=== PATIENT | male | born 1975 | race American Indian/Alaskan Native ===

== ENCOUNTER 2017-11-10 17:51 | Emergency (ER) | payer OTHER ==
[2017-11-10] MEDS ORDERED: TYLENOL ONE (18:07)
[2017-11-10] MEDS ORDERED: TYLENOL PO ONE (18:12)
[2017-11-10] MEDS ORDERED: MOTRIN PO ONE (18:40)
--- NOTE | 2017-11-10 18:44 | Emergency Department Report ---
- General Chief Complaint: Upper Respiratory Infection Stated Complaint: COLD S/S Time Seen by Provider: 11/10/17 18:09 Source: patient Mode of arrival: Ambulatory Limitations: No Limitations - History of Present Illness Initial Comments: This is a 41-year-old male nontoxic, well nourished in appearance, no acute signs of distress presents to the ED with c/o of rhinnorhea, frontal sinus pain , nonproductive cough, and nasal congestion x2 days. Patient also stated he developed fever this afternoon but denies taking anything for fever. Patient denies any recent travels, long car rides, or recent hospital stays. Patient denies hemoptysis, chest pain, shortness of breathe, fever, chills, headache, stiff neck, nausea, vomiting, numbness or tingling. Patient denies any blurry vision. Denies thunderclap headache. Patient denies any calf pain or tenderness. Denies any drug allergies. Denies PMH. MD Complaint: cough, rhinorrhea, nasal congestion, sinus pain -: days(s) (2) Severity: mild Severity scale (0 -10): 8 Quality: aching Consistency: constant Improves With: nothing Worsens With: nothing Associated Symptoms: rhinorrhea, nasal congestion, cough. denies: fever, chills , myalgias, diaphoresis, headache, sore throat, stiff neck, chest pain, shortness of breath, abdominal pain, nausea, vomiting, diarrhea, dysuria, rash, confusion, right sweats, weight loss, epistaxis, hoarseness, ear pain Treatments Prior to Arrival: none - Related Data Previous Rx's Medication Instructions Recorded Last Taken Type Azithromycin [Zithromax Z-SCOT] 250 mg PO DAILY #6 tablet 11/10/17 Unknown Rx Ibuprofen [Motrin] 600 mg PO Q8H PRN #30 tablet 11/10/17 Unknown Rx Allergies Allergy/AdvReac Type Severity Reaction Status Date / Time No Known Allergies Allergy Unverified 11/10/17 18:07 ED Review of Systems ROS: Stated complaint: COLD S/S Other details as noted in HPI Constitutional: denies: chills, fever Eyes: denies: eye pain, eye discharge, vision change ENT: denies: ear pain, throat pain Respiratory: cough. denies: shortness of breath, wheezing Cardiovascular: denies: chest pain, palpitations Endocrine: no symptoms reported Gastrointestinal: denies: abdominal pain, nausea, diarrhea Genitourinary: denies: urgency, dysuria Musculoskeletal: denies: back pain, joint swelling, arthralgia Skin: denies: rash, lesions Neurological: denies: headache, weakness, paresthesias Psychiatric: denies: anxiety, depression Hematological/Lymphatic: denies: easy bleeding, easy bruising ED Past Medical Hx - Past Medical History Previous Medical History?: No - Surgical History Past Surgical History?: No - Social History Smoking Status: Never Smoker Substance Use Type: None - Medications Home Medications: Home Medications Medication Instructions Recorded Confirmed Last Taken Type Azithromycin [Zithromax Z-SCOT] 250 mg PO DAILY #6 tablet 11/10/17 Unknown Rx Ibuprofen [Motrin] 600 mg PO Q8H PRN #30 tablet 11/10/17 Unknown Rx ED Physical Exam - General Limitations: No Limitations General appearance: alert, in no apparent distress - Head Head exam: Present: atraumatic, normocephalic, normal inspection - Eye Eye exam: Present: normal appearance, PERRL, EOMI. Absent: scleral icterus, conjunctival injection, nystagmus, periorbital swelling, periorbital tenderness Pupils: Present: normal accommodation - ENT ENT exam: Present: normal exam, normal orophraynx, mucous membranes moist, TM's normal bilaterally, normal external ear exam - Neck Neck exam: Present: normal inspection, full ROM. Absent: tenderness, meningismus, lymphadenopathy, thyromegaly - Respiratory Respiratory exam: Present: normal lung sounds bilaterally. Absent: respiratory distress, wheezes, rales, rhonchi, stridor, chest wall tenderness, accessory muscle use, decreased breath sounds, prolonged expiratory - Cardiovascular Cardiovascular Exam: Present: regular rate, normal rhythm, normal heart sounds. Absent: irregular rhythm, systolic murmur, diastolic murmur, rubs, gallop - GI/Abdominal GI/Abdominal exam: Present: soft, normal bowel sounds. Absent: distended, tenderness, guarding, rebound, rigid, diminished bowel sounds - Rectal Rectal exam: Present: deferred - Extremities Exam Extremities exam: Present: normal inspection, full ROM, normal capillary refill. Absent: tenderness, pedal edema, joint swelling, calf tenderness - Back Exam Back exam: Present: normal inspection, full ROM. Absent: tenderness, CVA tenderness (R), CVA tenderness (L), muscle spasm, paraspinal tenderness, vertebral tenderness, rash noted - Neurological Exam Neurological exam: Present: alert, oriented X3, CN II-XII intact, normal gait, reflexes normal - Psychiatric Psychiatric exam: Present: normal affect, normal mood - Skin Skin exam: Present: warm, dry, intact, normal color. Absent: rash ED Course Vital Signs 11/10/17 11/10/17 18:02 18:13 Temperature 102.9 F H Pulse Rate 100 H Respiratory 18 18 Rate Blood Pressure 130/81 O2 Sat by Pulse 100 Oximetry - Reevaluation(s) Reevaluation #1: 11/10/17 18:48 Patient is speaking in full sentences with no signs of distress noted. ED Medical Decision Making - Medical Decision Making This is a 41-year-old male that presents with upper respiratory infection. Patient is stable and was examined by me. Patient received Motrin and Tylenol fever. Vital signs within normal range before discharge. Chest xray has been obtained and dictated by radiologist. Patient is notified of xray results with no questions noted. Patient is treated empircally with zpak. Patient was instructed to increase hydration and to take OTC motrin or tylenol during fever episode. Patient was instructed to Follow-up with a primary care doctor in 3-5 days or if symptoms worsen and continue return to emergency room as soon as possible. At time time of discharge, the patient does not seem toxic or ill in appearance. No acute signs of distress noted. Patient agrees to discharge treatment plan of care. No further questions noted by the patient. Critical care attestation.: If time is entered above; I have spent that time in minutes in the direct care of this critically ill patient, excluding procedure time. ED Disposition Clinical Impression: Upper respiratory infection Qualifiers: URI type: unspecified URI Qualified Code(s): J06.9 - Acute upper respiratory infection, unspecified Fever Qualifiers: Fever type: unspecified Qualified Code(s): R50.9 - Fever, unspecified Disposition: DC-01 TO HOME OR SELFCARE Is pt being admited?: No Does the pt Need Aspirin: No Condition: Stable Instructions: Ibuprofen (By mouth), Azithromycin (By mouth), Fever in Adults ( ED), Upper Respiratory Infection (ED) Additional Instructions: Follow-up with a primary care doctor in 3-5 days or if symptoms worsen and continue return to emergency room as soon as possible. Increase hydration and taking Motrin or Tylenol during fever episode as prescribed Prescriptions: Azithromycin [Zithromax Z-SCOT] 250 mg PO DAILY #6 tablet Ibuprofen [Motrin] 600 mg PO Q8H PRN #30 tablet PRN Reason: Fever Referrals: LISSETTE MARSHALL MD [Primary Care Provider] - 3-5 Days KANDACE FLORES MD [Staff Physician] - 3-[address] [facility] [Outside] - 3-5 Days [facility] [Outside] - 3-5 Days Forms: Work/School Release Form(ED)
--- NOTE | 2017-11-10 19:02 | XRay Report ---
FINAL REPORT PROCEDURE: PA and lateral chest x-ray TECHNIQUE: PA and lateral chest radiographs were obtained. CPT 13772 HISTORY: cough COMPARISON: No prior studies are available for comparison. FINDINGS: Heart: Normal. Mediastinum/Vessels: Normal. Lungs/Pleural space: Normal. Bony thorax: No acute osseous abnormality. Other: IMPRESSION: Negative examination. If symptoms persist or worsen consider follow-up exam.
[2017-11-10 19:46] VITALS: BP 140/90
== END 2017-11-10 19:52 | disposition home or self-care (01) ==
LOC: ED 17:51
DX: J06.9 Acute upper respiratory infection, unspecified (principal); R50.9 Fever, unspecified
CPT/HCPCS: 71020; 87400

== ENCOUNTER 2020-01-21 13:33 | Emergency (ER) | payer SELFPAY ==
--- NOTE | 2020-01-21 14:06 | Event Note ---
ED Screening Note Date of service: 01/21/20 Time: 14:02 ED Screening Note: This is a 44 y.o. M. that presents to the ER with elevated blood pressure and lightheadedness. PMH of HTN Patient states he was started on blood pressure medication at an urgent care several months ago with no follow up. This initial assessment/diagnostic orders/clinical plan/treatment(s) is/are subject to change based on patients health status, clinical progression and re- assessment by fellow clinical providers in the ED. Further treatment and workup at subsequent clinical providers discretion. Patient/guardian urged not to elope from the ED as their condition may be serious if not clinically assessed and ma naged. Initial orders include: ACC for further evaluation
[2020-01-21] MEDS ORDERED: METOPROLOL TARTRATE 50 MG TAB PO ONE (15:15)
[2020-01-21 16:20] LABS: BUN/Creatinine Ratio 11; Blood Urea Nitrogen 13 mg/dL (9-20); Calcium 9.9 mg/dL (8.4-10.2); Hemolysis Index 17
[2020-01-21 17:21] VITALS: BP 178/97
--- NOTE | 2020-01-21 17:33 | Emergency Department Report ---
ED General Adult HPI - General Chief complaint: Chest Pain Stated complaint: BP HIGH 190 Time Seen by Provider: 01/21/20 14:02 Source: patient Mode of arrival: Ambulatory Limitations: No Limitations - History of Present Illness Initial comments: Patient is a 44-year-old F Burmese male who is presenting with elevated blood pressure. Patient states he was driving and started feeling his heart racing. 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 He is states he feels some improvement from when he was at the fire department but still has some mild lightheadedness. He denies chest pain shortness of breath cough cold or congestion. Patient denies any focal neurological deficits at this time. - Related Data Previous Rx's Medication Instructions Recorded Last Taken Type Azithromycin [Zithromax Z-SCOT] 250 mg PO DAILY #6 tablet 11/10/17 Unknown Rx Ibuprofen [Motrin] 600 mg PO Q8H PRN #30 tablet 11/10/17 Unknown Rx Amlodipine Besylate [Norvasc] 5 mg PO DAILY #30 tablet 01/21/20 Unknown Rx Allergies Allergy/AdvReac Type Severity Reaction Status Date / Time No Known Allergies Allergy Unverified 11/10/17 18:07 ED Review of Systems ROS: Stated complaint: BP HIGH 190 Other details as noted in HPI Comment: All other systems reviewed and negative ED Past Medical Hx - Past Medical History Previous Medical History?: Yes Hx Hypertension: Yes - Surgical History Past Surgical History?: No - Social History Smoking Status: Never Smoker Substance Use Type: None - Medications Home Medications: Home Medications Medication Instructions Recorded Confirmed Last Taken Type Azithromycin [Zithromax Z-SCOT] 250 mg PO DAILY #6 tablet 11/10/17 Unknown Rx Ibuprofen [Motrin] 600 mg PO Q8H PRN #30 tablet 11/10/17 Unknown Rx Amlodipine Besylate [Norvasc] 5 mg PO DAILY #30 tablet 01/21/20 Unknown Rx ED Physical Exam - General Limitations: No Limitations General appearance: alert, in no apparent distress - Head Head exam: Present: atraumatic, normocephalic - Eye Eye exam: Present: normal appearance, PERRL, EOMI - ENT ENT exam: Present: mucous membranes moist - Neck Neck exam: Present: normal inspection - Respiratory Respiratory exam: Present: normal lung sounds bilaterally. Absent: respiratory distress, wheezes, rales, rhonchi - Cardiovascular Cardiovascular Exam: Present: regular rate, normal rhythm, normal heart sounds. Absent: systolic murmur, diastolic murmur, rubs, gallop - GI/Abdominal GI/Abdominal exam: Present: soft, normal bowel sounds. Absent: distended, tenderness, guarding, rebound - Rectal Rectal exam: Present: deferred - Extremities Exam Extremities exam: Present: normal inspection - Back Exam Back exam: Present: normal inspection - Neurological Exam Neurological exam: Present: alert, oriented X3, CN II-XII intact, normal gait. Absent: motor sensory deficit - Psychiatric Psychiatric exam: Present: normal affect, normal mood - Skin Skin exam: Present: warm, dry, intact, normal color. Absent: rash ED Course Vital Signs 01/21/20 01/21/20 01/21/20 13:55 16:02 17:20 Temperature 97.6 F Pulse Rate 79 77 84 Respiratory 20 20 Rate Blood Pressure 174/119 171/105 Blood Pressure 178/97 [Right] O2 Sat by Pulse 99 Oximetry ED Medical Decision Making - Lab Data Result diagrams: 01/21/20 15:51 - Medical Decision Making Patient is presenting with palpitations and lightheadedness. His blood pressure was noted to be in the 190s. Patient was started on blood pressure medicine here in emergency department. Did check his renal function to make sure that he did not have underlying renal insufficiency from the elevated blood pressure. Patient states he has a remote history of taking blood pressure medicines but took himself off of the medications. Patient was given a referral to primary care will be started on Norvasc. Critical care attestation.: If time is entered above; I have spent that time in minutes in the direct care of this critically ill patient, excluding procedure time. ED Disposition Clinical Impression: Hypertensive urgency Disposition: DC-01 TO HOME OR SELFCARE Is pt being admited?: No Does the pt Need Aspirin: No Condition: Stable Instructions: Hypertension (ED) Referrals: JONELLE MAE MD [Staff Physician] - 3-5 Days Time of Disposition: 17:33
== END 2020-01-21 17:48 | disposition home or self-care (01) ==
LOC: ED 13:33
DX: I16.0 Hypertensive urgency (principal); I10 Essential (primary) hypertension
CPT/HCPCS: 36415; 80048; 93005; 93010; 99283

== ENCOUNTER 2020-02-05 02:46 | Emergency (ER) | payer SELFPAY ==
[2020-02-05] MEDS ORDERED: ASPIRIN 325 MG TAB PO ONE (03:58)
[2020-02-05 04:37] LABS: Basophils % (Auto) 0.5 % (0.0-1.8); Eosinophils # (Auto) 0.1 K/mm3 (0.0-0.4); Hematocrit 46.9 % (35.5-45.6); Lymphocytes # (Auto) 2.3 K/mm3 (1.2-5.4); Lymphocytes % (Auto) 25.7 % (13.4-35.0); Mean Corpuscular HGB Conc 34 % (32-34); Mean Corpuscular Volume 87 fl (84-94); Monocytes # (Auto) 0.7 K/mm3 (0.0-0.8); Monocytes % (Auto) 7.6 % (0.0-7.3); Platelet Count 220 K/mm3 (140-440); Red Blood Count 5.41 M/mm3 (3.65-5.03)
--- NOTE | 2020-02-05 04:52 | XRay Report ---
CHEST 1 VIEW INDICATION / CLINICAL INFORMATION: Chest Pain. COMPARISON: 11/10/2017 FINDINGS: SUPPORT DEVICES: None. HEART / MEDIASTINUM: No significant abnormality. LUNGS / PLEURA: No significant pulmonary or pleural abnormality. No pneumothorax. ADDITIONAL FINDINGS: No significant additional findings. IMPRESSION: No acute pulmonary or pleural abnormality. No change from 11/10/2017 Signer Name: Neftaly Jasmine MD FACR Signed: 02/05/2020 4:48 AM Workstation Name: [id number]
[2020-02-05 04:53] LABS: BUN/Creatinine Ratio 9; Blood Urea Nitrogen 11 mg/dL (9-20); Calcium 9.7 mg/dL (8.4-10.2); Hemolysis Index 8
[2020-02-05] MEDS ORDERED: ONDANSETRON 4 MG/2 ML INJ IV ONE (05:30)
[2020-02-05] MEDS ORDERED: FAMOTIDINE 20 MG/2 ML INJ IV ONE (05:30)
--- NOTE | 2020-02-05 05:32 | Event Note ---
ED Screening Note Date of service: 02/05/20 Time: 05:31 ED Screening Note: This initial assessment/diagnostic orders/clinical plan/treatment(s) is/are subject to change based on patients health status, clinical progression and re- assessment by fellow clinical providers in the ED. Further treatment and workup at subsequent clinical providers discretion. Patient/guardian urged not to elope from the ED as their condition may be serious if not clinically assessed and managed. Patient is a 44-year-old F [place]ine[place] male who states for the past 2 days he has had epigastric discomfort. States is having extreme nausea. Tonight he ate something seemed that this will help however it made it worse. Patient states that it is worse when lying flat. States during the daytime he felt relatively normal. Patient states the sensation in his epigastrium then causes his heart to race and he has had palpitations. Initial orders include: 2 troponins have been ordered as well as a chest x-ray basic labs. Lipase and hepatic panel been ordered as well as ultrasound of the upper abdomen.
[2020-02-05 06:22] LABS: Alanine Aminotransferase 15 units/L (7-56); Albumin 4.9 g/dL (3.9-5)
[2020-02-05 06:24] LABS: Bilirubin,Direct < 0.2 mg/dL (0-0.2)
--- NOTE | 2020-02-05 07:27 | Ultrasound Report ---
US abdomen limited INDICATION / CLINICAL INFORMATION: epigastric pain nausea. COMPARISON: None available. FINDINGS: Sludge is present in the gallbladder. The gallbladder wall is not thickened. Common bile duct is norm al measuring 2 mm. There is a hypoechoic area seen in the right lobe of the liver that is not clearly a simple cyst. This measures 2.2 cm in greatest diameter. The pancreas, right kidney and aorta are n ormal. IMPRESSION: 1. Sludge present in the gallbladder without definite stones present. The gallbladder wall is not thi ckened. 2. 2.2 cm complex appearing hypoechoic area in the right lobe of the liver that is not clearly a simp le cyst. CT of the abdomen with contrast may be helpful for further evaluation if clinically indicate d Signer Name: Neftaly Jasmine MD FACR Signed: 02/05/2020 7:22 AM Workstation Name: [id number]
--- NOTE | 2020-02-05 07:42 | Emergency Department Report ---
ED General Adult HPI - General Chief complaint: Hyperglycemia Stated complaint: HIGH BP Time Seen by Provider: 02/05/20 06:20 Source: patient Mode of arrival: Ambulatory Limitations: No Limitations - History of Present Illness Initial comments: 44-year-old male with history of hypertension presents to ED with nausea, dizziness, palpitations. Patient states his symptoms began after eating a peanut butter and jelly sandwich on yesterday. States the palpitations have been intermittent. States his nausea is worse when lying down. Patient denies any chest pain, abdominal pain, headache, fever, shortness of breath, cough. Triage note reports patient experienced chest pain, however patient states it was very brief, lasting only a few seconds, and has not returned. No current chest pain. -: Last night Severity scale (0 -10): 0 Consistency: intermittent Improves with: none Worsens with: none, other Associated Symptoms: nausea/vomiting. denies: chest pain, cough, fever/chills, headaches, shortness of breath, syncope - Related Data Previous Rx's Medication Instructions Recorded Last Taken Type Azithromycin [Zithromax Z-SCOT] 250 mg PO DAILY #6 tablet 11/10/17 Unknown Rx Ibuprofen [Motrin] 600 mg PO Q8H PRN #30 tablet 11/10/17 Unknown Rx Amlodipine Besylate [Norvasc] 5 mg PO DAILY #30 tablet 01/21/20 Unknown Rx Allergies Allergy/AdvReac Type Severity Reaction Status Date / Time No Known Allergies Allergy Unverified 11/10/17 18:07 ED Review of Systems ROS: Stated complaint: HIGH BP Other details as noted in HPI Comment: All other systems reviewed and negative Constitutional: denies: chills, fever Respiratory: denies: cough, shortness of breath Cardiovascular: palpitations. denies: chest pain Gastrointestinal: nausea. denies: abdominal pain, vomiting, diarrhea Neurological: denies: headache ED Past Medical Hx - Past Medical History Previous Medical History?: Yes Hx Hypertension: Yes - Surgical History Past Surgical History?: No - Social History Smoking Status: Never Smoker Substance Use Type: None - Medications Home Medications: Home Medications Medication Instructions Recorded Confirmed Last Taken Type Azithromycin [Zithromax Z-SCOT] 250 mg PO DAILY #6 tablet 11/10/17 Unknown Rx Ibuprofen [Motrin] 600 mg PO Q8H PRN #30 tablet 12/25/17 Unknown Rx Amlodipine Besylate [Norvasc] 5 mg PO DAILY #30 tablet 01/21/20 Unknown Rx ED Physical Exam - General Limitations: No Limitations General appearance: alert, in no apparent distress - Head Head exam: Present: atraumatic, normocephalic - Eye Eye exam: Present: normal appearance, EOMI - ENT ENT exam: Present: mucous membranes moist - Neck Neck exam: Present: normal inspection - Respiratory Respiratory exam: Present: normal lung sounds bilaterally. Absent: respiratory distress - Cardiovascular Cardiovascular Exam: Present: regular rate, normal rhythm - GI/Abdominal GI/Abdominal exam: Present: soft. Absent: distended, tenderness - Extremities Exam Extremities exam: Present: normal inspection - Neurological Exam Neurological exam: Present: alert, oriented X3, CN II-XII intact. Absent: motor sensory deficit - Psychiatric Psychiatric exam: Present: normal affect, normal mood - Skin Skin exam: Present: warm, dry, intact, normal color ED Course Vital Signs 02/05/20 02/05/20 02/05/20 02:56 07:31 07:32 Temperature 98.3 F 98.1 F Pulse Rate 100 H 73 Respiratory 20 21 Rate Blood Pressure 167/98 Blood Pressure 155/89 [Left] O2 Sat by Pulse 97 100 100 Oximetry 02/05/20 02/05/20 09:33 09:34 Temperature 97.9 F 97.9 F Pulse Rate 72 72 Respiratory 18 18 Rate Blood Pressure Blood Pressure 142/82 142/82 [Left] O2 Sat by Pulse 100 100 Oximetry ED Medical Decision Making - Lab Data Result diagrams: 02/05/20 04:23 02/05/20 04:23 - EKG Data -: EKG Interpreted by Vt EKG shows normal: sinus rhythm, axis, intervals, QRS complexes, ST-T waves Rate: normal - EKG Data Interpretation: other (one PVC present) - Radiology Data Radiology results: report reviewed, image reviewed - Differential Diagnosis ACS, arrythmia, gallstones Critical care attestation.: If time is entered above; I have spent that time in minutes in the direct care of this critically ill patient, excluding procedure time. ED Disposition Clinical Impression: Palpitations, Hypokalemia Disposition: DC-01 TO HOME OR SELFCARE Is pt being admited?: No Condition: Stable Instructions: Palpitations (ED), Hypokalemia (ED) Referrals: PRIMARY CARE, [Primary Care Provider] - 3-5 Days [facility] [Provider Group] - 3-5 Days Time of Disposition: 09:12
[2020-02-05] MEDS ORDERED: POTASSIUM CHLORIDE ER 20 MEQ TAB PO ONE (07:43)
[2020-02-05 09:34] VITALS: BP 142/82
== END 2020-02-05 09:34 | disposition home or self-care (01) ==
LOC: ED 02:46
DX: E87.6 Hypokalemia (principal); R00.2 Palpitations; I10 Essential (primary) hypertension; Z79.899 Other long term (current) drug therapy
CPT/HCPCS: 36415; 71045; 76705; 80048; 80076; 83690; 83735; 84484; 85025; 93005; 93010; 96374; 96375; 99285; J2405

== ENCOUNTER 2021-02-22 19:00 | Emergency (ER) | payer SELFPAY ==
--- NOTE | 2021-02-22 20:16 | Event Note ---
ED Screening Note Date of service: 02/22/21 Time: 20:15 ED Screening Note: 45-year-old male patient with history of hypertension presents emergency department complaints of dizziness, constant headache, intermittent chest pain, and "feeling weird when I lay down" for one week. Patient states the headache and the dizziness worsened today. No known sick contacts. He has already taken his blood pressure medication today. He is not anticoagulated. No preceding trauma. BP elevated in triage. General: Awake, appropriately interactive, no acute distress. Neck: Supple. Full range of motion intact. Cardiovascular: Normal peripheral perfusion. Pulmonary: No respiratory distress. Patient is speaking normally without use of accessory muscles. Skin: No apparent rashes or lesions. Neurological: No facial asymmetry. Speech is clear. Follows commands. Patient is alert and oriented. Musculoskeletal: Moves all four extremities spontaneously with normal range of motion. Psych: Cooperative. Appropriate mood and affect. I have greeted and performed a focused rapid initial assessment of this patient. A comprehensive ED assessment and evaluation of the patient, analysis of all test results, and completion of the medical decision-making process will be conducted by additional ED providers. This initial assessment/diagnostic orders/clinical plan/treatment(s) is/are subject to change based on patients health status, clinical progression and re-assessment. Further treatment and workup at subsequent clinical provider's discretion. Patient/guardian urged not to elope from the ED as their condition may be serious if not clinically assessed and managed.
--- NOTE | 2021-02-22 20:34 | XRay Report ---
CHEST 2 VIEWS INDICATION / CLINICAL INFORMATION: chest pain. COMPARISON: None available. FINDINGS: SUPPORT DEVICES: None. HEART / MEDIASTINUM: No significant abnormality. LUNGS / PLEURA: No significant pulmonary or pleural abnormality. No pneumothorax. ADDITIONAL FINDINGS: No significant additional findings. IMPRESSION: 1. No acute findings. Signer Name: Juarez Candelaria MD Signed: 02/22/2021 8:29 PM Workstation Name: [id number]
[2021-02-22 20:40] LABS: Basophils % (Auto) 0.2 % (0.0-1.8); Eosinophils # (Auto) 0.1 K/mm3 (0.0-0.4); Eosinophils % (Auto) 1.5 % (0.0-4.3); Hemoglobin 15.2 gm/dl (11.8-15.2); Lymphocytes # (Auto) 1.7 K/mm3 (1.2-5.4); Lymphocytes % (Auto) 21.8 % (13.4-35.0); Mean Corpuscular HGB Conc 35 % (32-34); Mean Corpuscular Volume 86 fl (84-94); Monocytes # (Auto) 0.6 K/mm3 (0.0-0.8); Monocytes % (Auto) 7.1 % (0.0-7.3); Platelet Count 215 K/mm3 (140-440); Red Blood Count 5.02 M/mm3 (3.65-5.03); Red Cell Distribution Width 13.3 % (13.2-15.2)
[2021-02-22 21:04] LABS: Alanine Aminotransferase 12 units/L (7-56); Albumin 4.6 g/dL (3.9-5); BUN/Creatinine Ratio 14; Blood Urea Nitrogen 14 mg/dL (9-20); Calcium 9.2 mg/dL (8.4-10.2); Hemolysis Index 15
--- NOTE | 2021-02-23 03:11 | Emergency Department Report ---
HPI - General Chief Complaint: Headache Time Seen by Provider: 02/23/21 02:49 - HPI HPI: Room 22 The patient is a 45-year-old male present with a chief complaint of headache and dizziness. Patient states for the past week he has had intermittent diffuse headaches and dizziness. Patient denies any preceding trauma. Patient denies nausea/vomiting or fever. The patient states he initially thought he was coming down with a head cold and so he took NyQuil and it would help temporarily but his headache returned. Patient complains of dizziness as well. The patient states for the past week he is also had intermittent chest tightness which lasts several seconds but is not associated with shortness of breath, nausea/vomiting or diaphoresis. At the time of this interview the patient denied having any symptoms but states his symptoms have been intermittent. ED Past Medical Hx - Past Medical History Previous Medical History?: Yes Hx Hypertension: Yes - Surgical History Past Surgical History?: No - Family History Family history: no significant - Social History Smoking Status: Never Smoker Substance Use Type: None (Denies illicit drug use) - Medications Home Medications: Home Medications Medication Instructions Recorded Confirmed Last Taken Type Azithromycin [Zithromax Z-SCOT] 250 mg PO DAILY #6 tablet 11/10/17 Unknown Rx Ibuprofen [Motrin] 600 mg PO Q8H PRN #30 tablet 11/10/17 Unknown Rx Amlodipine Besylate [Norvasc] 5 mg PO DAILY #30 tablet 01/21/20 Unknown Rx Butalb/Acetamin/Caff 50-325-40 2 tab PO Q8HR PRN #20 tablet 02/23/21 Unknown Rx [Fioricet 50-325-40] Meclizine HCl 25 mg PO TID PRN #20 tablet 02/23/21 Unknown Rx ED Review of Systems ROS: Stated complaint: HEADACHE/DIZZY Other details as noted in HPI Constitutional: denies: fever Eyes: denies: eye pain ENT: denies: throat pain Respiratory: denies: shortness of breath Cardiovascular: chest pain Endocrine: no symptoms reported Gastrointestinal: denies: nausea, vomiting Genitourinary: denies: dysuria Musculoskeletal: denies: back pain Neurological: headache, vertigo Physical Exam - Physical Exam Vital Signs: Vital Signs 02/22/21 20:10 Temperature 97.7 F Pulse Rate 87 Respiratory 16 Rate Blood Pressure 170/89 [Right] O2 Sat by Pulse 100 Oximetry Physical Exam: GENERAL: The patient is well-developed well-nourished male lying on stretcher not appearing to be in acute distress. [] HEENT: Normocephalic. Atraumatic. Extraocular motions are intact. Patient has moist mucous membranes. No nystagmus NECK: Supple. No meningitic signs are noted. There is no nuchal rigidity CHEST/LUNGS: Clear to auscultation. There is no respiratory distress noted. HEART/CARDIOVASCULAR: Regular. There is no tachycardia. There is no gallop rub or murmur. ABDOMEN: Abdomen is soft, nontender. Patient has normal bowel sounds. There is no abdominal distention. SKIN: There is no rash. There is no edema. There is no diaphoresis. NEURO: The patient is awake, alert, and oriented. The patient is cooperative. The patient has no focal neurologic deficits. The patient has normal speech. Cranial nerves II through XII grossly intact. There is no dysmetria noted with [id number] bilaterally MUSCULOSKELETAL: There is no evidence of acute injury. ED Course Vital Signs 02/22/21 20:10 Temperature 97.7 F Pulse Rate 87 Respiratory 16 Rate Blood Pressure 170/89 [Right] O2 Sat by Pulse 100 Oximetry ED Medical Decision Making - Lab Data Result diagrams: 02/22/21 20:22 02/22/21 20:22 Laboratory Tests 02/22/21 02/22/21 02/22/21 20:22 20:22 22:56 WBC 8.0 RBC 5.02 Hgb 15.2 Hct 43.0 MCV 86 MCH 30 MCHC 35 H RDW 13.3 Plt Count 215 Lymph % (Auto) 21.8 [place] % (Auto) 7.1 Eos % (Auto) 1.5 Baso % (Auto) 0.2 Lymph # (Auto) 1.7 [place] # (Auto) 0.6 Eos # (Auto) 0.1 Baso # (Auto) 0.0 Seg Neutrophils % 69.4 Seg Neutrophils # 5.6 Sodium 141 Potassium 3.9 Chloride 105.6 Carbon Dioxide 27 Anion Gap 12 BUN 14 Creatinine 1.0 Estimated GFR > 60 BUN/Creatinine Ratio 14 Glucose 97 Calcium 9.2 Magnesium 2.00 Total Bilirubin 0.60 AST 13 ALT 12 Alkaline Phosphatase 82 Troponin T < 0.010 < 0.010 Total Protein 8.0 Albumin 4.6 Albumin/Globulin Ratio 1.4 02/23/21 03:40 WBC RBC Hgb Hct MCV MCH MCHC RDW Plt Count Lymph % (Auto) [place] % (Auto) Eos % (Auto) Baso % (Auto) Lymph # (Auto) [place] # (Auto) Eos # (Auto) Baso # (Auto) Seg Neutrophils % Seg Neutrophils # Sodium Potassium Chloride Carbon Dioxide Anion Gap BUN Creatinine Estimated GFR BUN/Creatinine Ratio Glucose Calcium Magnesium Total Bilirubin AST ALT Alkaline Phosphatase Troponin T < 0.010 Total Protein Albumin Albumin/Globulin Ratio - EKG Data -: EKG Interpreted by Me EKG shows normal: sinus rhythm Rate: normal - EKG Data When compared to previous EKG there are: previous EKG unavailable Interpretation: nonspecific ST-T wave rachel - Radiology Data Radiology results: report reviewed (CT head, chest x-ray), image reviewed (CT head, chest x-ray) interpreted by me: Chest x-ray-no focal infiltrates, no pneumothorax. No foreign body seen [facility] [address] [place] [address] Cat Scan Report Signed Patient: RAMIREZ AYON MR#: [id number] : 1975 Acct:[id number] Age/Sex: 45 / M ADM Date: 02/22/21 Loc: ED Attending Dr: Ordering Physician: DAMI WINN MD Date of Service: 02/23/21 Procedure(s): CT head/brain wo con Accession Number(s): [id number] cc: DAMI WINN MD CT HEAD WITHOUT CONTRAST INDICATION / CLINICAL INFORMATION: Headache, hypertension, dizziness. TECHNIQUE: All CT scans at this location are performed using CT dose reduction for ALARA by means of automated exposure control. COMPARISON: None available. FINDINGS: HEMORRHAGE: None. EXTRA-AXIAL SPACES: Normal in size and morphology for the patient's age. VENTRICULAR SYSTEM: Normal in size and morphology for the patient's age. CEREBRAL PARENCHYMA: No significant ab normality. No acute territorial infarct. MIDLINE SHIFT / HERNIATION: None. CEREBELLUM / BRAINSTEM: No significant abnormality. ORBITS: Normal as visualized. SOFT TISSUES: No significant abnormality. SKULL: No significant abnormality. PARANASAL SINUSES / MASTOID AIR CELLS: Normal as visualized. ADDIT IONAL FINDINGS: None. IMPRESSION: 1. No acute intracranial abnormality. Signer Name: Denzel Anderson MD Signed: 02/23/2021 3:31 AM Workstation Name: [id number] Transcribed By: Dictated By: Denzel Anderson MD Electronically Authenticated By: Denzel Anderson MD Signed Date/Time: 02/23/21330 DD/ 9 TD/TT: Print Cancel [facility] [address] [place] [address] XRay Report Signed Patient: RAMIREZ AYON MR#: [id number] : 1975 Acct:[id number] Age/Sex: 45 / M ADM Date: 02/22/21 Loc: ED Attending Dr: Miller madrid Physician: NORMAN MONTENEGRO Date of Service: 02/22/21 Procedure(s): XR chest routine 2V Accession Number(s): [id number] cc: NORMAN MONTENEGRO Fluoro Time In Minutes: CHEST 2 VIEWS INDICATION / CLINICAL INFORMATION: chest pain. COMPARISON: None available. FINDINGS: SUPPORT DEVICES: None. HEART / MEDIASTINUM: No significant abnormality. LUNGS / PLEURA: No significant pulmonary or pleural abnormality. No pneumothorax. ADDITIONAL FINDINGS: No significant additional findings. IMPRESSION: 1. No acute findings. Signer Name: Juarez Candelaria MD Signed: 02/22/2021 8:29 PM Workstation Name: [id number] Transcribed By: Dictated By: AZAR CANDELARIA MD Electronically Authenticated By: AZAR CANDELARIA MD Signed Date/Time: 02/22/212028 DD/ 28 TD/TT: Print Cancel - Differential Diagnosis Vertigo, intracranial mass, hypertensive urgency, ICH, ACS, Critical care attestation.: If time is entered above; I have spent that time in minutes in the direct care of this critically ill patient, excluding procedure time. ED Disposition Clinical Impression: Headache, Dizziness, Hypertension Disposition: DC-01 TO HOME OR SELFCARE Is pt being admited?: No Does the pt Need Aspirin: No Condition: Stable Instructions: Hypertension (ED), Managing Your Hypertension, Hypertension, Adult, [id number], General Headache Without Cause, [id number] Additional Instructions: Return to the emergency department should you develop worsening symptoms, inability to tolerate food or liquids, high fever or any other concerns Prescriptions: Butalb/Acetamin/Caff 50-325-40 [Fioricet 50-325-40] 2 tab PO Q8HR PRN #20 tablet PRN Reason: Headache Meclizine HCl 25 mg PO TID PRN #20 tablet PRN Reason: Vertigo Referrals: [facility] [Provider Group] - 3-5 Days ROCK WELCH MD [Staff Physician] - 3-5 Days (Dr. Welch is a neurologist. Please follow-up with him for further evaluation) Time of Disposition: 04:27
[2021-02-23 03:19] VITALS: BP 163/99
--- NOTE | 2021-02-23 03:36 | Cat Scan Report ---
CT HEAD WITHOUT CONTRAST INDICATION / CLINICAL INFORMATION: Headache, hypertension, dizziness. TECHNIQUE: All CT scans at this location are performed using CT dose reduction for ALARA by means of automated exposure control. COMPARISON: None available. FINDINGS: HEMORRHAGE: None. EXTRA-AXIAL SPACES: Normal in size and morphology for the patient's age. VENTRICULAR SYSTEM: Normal in size and morphology for the patient's age. CEREBRAL PARENCHYMA: No significant abnormality. No acute territorial infarct. MIDLINE SHIFT / HERNIATION: None. CEREBELLUM / BRAINSTEM: No significant abnormality. ORBITS: Normal as visualized. SOFT TISSUES: No significant abnormality. SKULL: No significant abnormality. PARANASAL SINUSES / MASTOID AIR CELLS: Normal as visualized. ADDITIONAL FINDINGS: None. IMPRESSION: 1. No acute intracranial abnormality. Signer Name: Denzel Anderson MD Signed: 02/23/2021 3:31 AM Workstation Name: [id number]
--- NOTE | 2021-02-23 11:31 | Electrocardiograph Report ---
[facility] Test Date: 2021-02-22 Test Time: 20:36:22 Pat Name: RAMIREZ AYON Department: Room: Gender: M Care Aide: BENNY : 1975 Requested By: MALATHI ALEXANDRE Order Number: [id number] Reading MD: Mejia Strong Measurements Intervals [place] Rate: 78 P: 60 CA: 191 QRS: 40 QRSD: 70 T: 33 QT: 359 QTc: 409 Interpretive Statements Sinus rhythm non specific st-t No previous ECG available for comparison Electronically Signed On 02-23-2021 11:31:26 EDT by Mejia Strong
== END 2021-02-23 04:30 | disposition home or self-care (01) ==
LOC: ED 19:00
DX: R51.9 Headache, unspecified (principal); R42 Dizziness and giddiness; I10 Essential (primary) hypertension; Z79.1 Long term (current) use of non-steroidal anti-inflammatories (NSAID); Z79.2 Long term (current) use of antibiotics; Z79.899 Other long term (current) drug therapy
CPT/HCPCS: 36415; 70450; 71046; 80053; 83735; 84484; 85025; 93005